=== PATIENT | female | born 1960 | race Caucasian/White ===

== ENCOUNTER → 2017-12-29 | Outpatient (CLI) | payer OTHER ==
[~2017-12-29] MED LIST: ABILIFY2 MG PO; BACTRIM,SEPT1 TABLET PO; CLARITIN10 M3 PO; CYMBALTA60 MG PO; LIPITOR20 MG PO; OMEPRAZOLE40 MG PO; SOLODYN PO; TOPAMAX50 MG PO; WELLBUTRIN XL300 MG PO
== END | disposition home or self-care (01) ==
LOC: NUC 07:00
DX: R10.31 Right lower quadrant pain (principal)
CPT/HCPCS: 78227; A9537; J2805